=== PATIENT | female | born 1945 | race Hispanic/Latino ===

== ENCOUNTER 2019-10-16 14:15 | Inpatient (IN) | payer MEDICARE ==
[2019-10-16 15:01] LABS: Basophils % 0.8 % (0-1.3); Hematocrit 42.5 % (36.0-45.0); Lymphocytes % 9.3 % (15.3-44.8); MPV 9.9 fL (7.6-11.3); RBC Red Blood Cell Count 4.87 M/uL (3.86-4.86)
[2019-10-16 15:10] LABS: Protime INR 1.22
--- NOTE | 2019-10-16 15:22 | RAD REPORT ---
EXAM DESCRIPTION: RAD - Chest Single View - 10/16/2019 3:08 pm CLINICAL HISTORY: CHEST PAIN COMPARISON: No comparisons TECHNIQUE: AP portable chest image was obtained 10/16/2019 3:08 pm . FINDINGS: Lungs are clear. Heart and vasculature are normal. No measurable pleural effusion and no p neumothorax. No acute bony abnormality seen. No acute aortic findings suspected. IMPRESSION: No acute cardiopulmonary process.
[2019-10-16 15:23] LABS: Albumin 3.3 g/dL (3.4-5.0); Bilirubin Direct 0.2 mg/dL (0-0.2); Bilirubin Total 0.8 mg/dL (0.2-1.0); Potassium 3.2 mmol/L (3.5-5.1); Protein, Total 7.2 g/dL (6.4-8.2); Troponin (Emerg Dept Use Only) 0.02 ng/mL (0.0-0.045)
[2019-10-16] MEDS ORDERED: MORPHINE 2 MG/ML SYR ONE ×2 (15:33→18:52)
[2019-10-16] MEDS ORDERED: ONDANSETRON 4 MG/2 ML VIAL ONE (15:34)
[2019-10-16] MEDS ORDERED: NA CHLORIDE 0.9% 500 ML ONE (15:34)
--- NOTE | 2019-10-16 15:36 | EKG ---
Test Date: 2019-10-16 Test Time: 14:52:30 Field Ironworker: AARON MEASUREMENT RESULTS: Intervals: Rate: 98 RI: 136 QRSD: 68 QT: 378 QTc: 482 [place]: P: 25 RI: 136 QRS: 42 T: 48 INTERPRETIVE STATEMENTS: Normal sinus rhythm Possible Left atrial enlargement Cannot rule out Anterior infarct, age undetermined Abnormal ECG No previous ECG available for comparison Electronically Signed On 10-16-19 15:35:09 SUPERVISOR GENERAL by Senthil Briggs
--- NOTE | 2019-10-16 16:03 | RAD REPORT ---
EXAM DESCRIPTION: CT - Abdomen Pelvis W Contrast - 10/16/2019 3:53 pm CLINICAL HISTORY: ABD PAIN COMPARISON: No comparisons TECHNIQUE: Biphasic, helical CT imaging of the abdomen and pelvis was performed following 100 ml non -ionic IV contrast. No oral contrast administered. All CT scans are performed using dose optimization technique as appropriate and may include automated exposure control or mA/KV adjustment according to patient size. FINDINGS: No acute lung base finding. Patient has a small pericardial effusion. Minimal hiatal herni a is present. Liver and spleen show no suspicious findings. No gallbladder or biliary tree abnormality. No solid or cystic mass within the pancreatic parenchyma. There is minimal amount of stranding along the head an d body of the pancreas with fluid in stranding extending superiorly around the SMA and celiac vascula ture. Pancreatic duct is mildly prominent. No biliary tree abnormality seen. Symmetric renal function is seen with no hydronephrosis or suspicious renal mass. No pyelonephritis o r acute parenchymal process. No bladder abnormalities. No adrenal abnormalities. Uterus is absent. Ov nishi are absent or atrophic. No adnexal mass. No dilated bowel loops or bowel wall thickening. No free air, free fluid or inflammatory stranding. No hernia, mass or bulky lymphadenopathy. No suspicious bony findings. IMPRESSION: Edema and stranding changes are present in the region of the pancreas and extending supe riorly along the celiac and SMA vascular roots. No focal mass or abscess. No lymphadenopathy finding. Correlation is needed with any clinical or labo ratory findings indicating pancreatitis. No gallbladder or biliary tree abnormality.
--- NOTE | 2019-10-16 17:30 | ER ---
Nurse's Notes [facility] Name: Yelena Guzmán Age: 74 yrs Sex: Female : 1945 Arrival Date: 10/16/2019 Time: 14:16 Bed 17 Private MD: Diagnosis: Abdominal and pelvic pain;Acute pancreatitis Presentation: 10/16 14:18 Presenting complaint: Patient states: "I am having chest pain (pt points to diaphragm) aa5 and a headache since Saturday". Pt also c/o vomiting. Transition of care: patient was not received from another setting of care. Onset of symptoms was September 2019. Risk Assessment: Do you want to hurt yourself or someone else? Patient reports no desire to harm self or others. Initial Sepsis Screen: Does the patient meet any 2 criteria? No. Patient's initial sepsis screen is negative. Does the patient have a suspected source of infection? No. Patient's initial sepsis screen is negative. Care prior to arrival: None. 14:18 Acuity: FERCHO 3 aa5 14:18 Method Of Arrival: Wheelchair aa5 Historical: - Allergies: 14:19 No Known Allergies; aa5 - PMHx: 14:19 Arthritis; aa5 - Immunization history:: Flu vaccine is up to date. - Social history:: Smoking status: Patient denies any tobacco usage or history of. - Ebola Screening: : No symptoms or risks identified at this time. Screenin:26 Abuse screen: Denies threats or abuse. Nutritional screening: No deficits noted. tw2 Tuberculosis screening: No symptoms or risk factors identified. Fall Risk None identified. Assessment: 14:25 General: Appears in no apparent distress. slender, well groomed, Behavior is calm, tw2 cooperative, appropriate for age. Pain: Complains of pain in xyphoid area and diaphragm Pain does not radiate. Pain began a few days. Neuro: Level of Consciousness is awake, alert, obeys commands, Oriented to person, place, time, situation. Cardiovascular: Heart tones S1 S2 Patient's skin is warm and dry. Respiratory: Airway is patent Respiratory effort is even, unlabored, Respiratory pattern is regular, symmetrical, Breath sounds are clear bilaterally. GI: Abdomen is flat, Bowel sounds present X 4 quads. Reports upper abdominal pain. : No signs and/or symptoms were reported regarding the genitourinary system. EENT: No signs and/or symptoms were reported regarding the EENT system. Derm: No signs and/or symptoms reported regarding the dermatologic system. Musculoskeletal: Range of motion: intact in all extremities. 15:43 Reassessment: Patient appears in no apparent distress at this time. No changes from tw2 previously documented assessment. Patient and/or family updated on plan of care and expected duration. Pain level reassessed. Patient is alert, oriented x 3, equal unlabored respirations, skin warm/dry/pink. 17:15 Reassessment: Patient appears in no apparent distress at this time. No changes from tw2 previously documented assessment. Patient and/or family updated on plan of care and expected duration. Pain level reassessed. Patient is alert, oriented x 3, equal unlabored respirations, skin warm/dry/pink. 18:25 Reassessment: Patient appears in no apparent distress at this time. No changes from tw2 previously documented assessment. Patient and/or family updated on plan of care and expected duration. Pain level reassessed. Patient is alert, oriented x 3, equal unlabored respirations, skin warm/dry/pink. 19:15 Reassessment: Patient appears in no apparent distress at this time. Patient and/or wh family updated on plan of care and expected duration. Pain level reassessed. Patient is alert, oriented x 3, equal unlabored respirations, skin warm/dry/pink. Vital Signs: 14:17 BP 144 / 82; Pulse 112; Resp 18 S; Temp 98.3(O); Pulse Ox 94% on R/A; Weight 65.77 kg aa5 (R); Height 5 ft. 2 in. (157.48 cm) (R); 15:00 BP 124 / 83; Pulse 107; Resp 17; Pulse Ox 97% on R/A; tw2 15:42 BP 106 / 93; Pulse 101; Resp 17; Pulse Ox 96% on R/A; tw2 17:08 BP 117 / 68; Pulse 101; Resp 17; Pulse Ox 96% on R/A; tw2 18:25 BP 147 / 62; Pulse 90; Resp 17; Pulse Ox 96% on R/A; tw2 19:15 BP 148 / 69; Pulse 92; Resp 18; Pulse Ox 95% on R/A; wh 20:30 BP 155 / 77; Pulse 93; Resp 18; Pulse Ox 96% on R/A; wh 14:17 Body Mass Index 26.52 (65.77 kg, 157.48 cm) aa5 ED Course: 14:16 Patient arrived in ED. as 14:19 Triage completed. aa5 14:20 Arm band placed on. aa5 14:25 Bed in low position. Call light in reach. night monitor on. Pulse ox on. NIBP on. tw2 14:31 Marquise Roman MD is Attending Physician. kdr 14:37 Donna Peres RN is Primary Nurse. tw2 14:45 Inserted saline lock: 20 gauge in left antecubital area, using aseptic technique. Blood tw2 collected. Patient maintains SpO2 saturation greater than 95% on room air. 15:02 EKG done, by heat transfer technician. reviewed by Marquise Roman MD. tc 15:09 XRAY Chest (1 view) In Process Unspecified. EDMS 15:53 CT Abd/Pelvis - IV Contrast Only In Process Unspecified. EDMS 17:29 Gio Topete MD is Hospitalizing Provider. kdr 19:07 Report given to JOVANNI Cristina. tw2 20:30 No provider procedures requiring assistance completed. Patient admitted, IV remains in wh place. Administered Medications: 15:38 Drug: Zofran 4 mg Route: IVP; Site: left antecubital; tw2 16:08 Follow up: Response: No adverse reaction tw2 15:38 Drug: morphine 2 mg Route: IVP; Site: left antecubital; tw2 15:44 Drug: NS 0.9% 500 ml Route: IV; Rate: bolus; Site: left antecubital; tw2 16:50 Follow up: IV Status: Completed infusion; IV Intake: 500ml tw2 19:00 Drug: morphine 2 mg Route: IVP; Site: left antecubital; tw2 19:27 Follow up: Response: No adverse reaction; Pain is decreased; RASS: Alert and Calm (0) Intake: 16:50 IV: 500ml; Total: 500ml. tw2 Outcome: 17:30 Decision to Hospitalize by Provider. kdr 20:31 Admitted to Tele accompanied by tech, via wheelchair, room 408, with chart, Report wh called to Bean Fontenot RN 20:31 Condition: stable 20:31 Instructed on the need for admit. 20:32 Patient left the ED. wh Signatures: Dispatcher [employer] EDMS Marquise Roman MD MD kdr Martinez, Amelia as Calderon, Audri, RN RN aa5 Danyelle Chavarria, sheet metal layout mechanic EKG [facility] Donna Peres RN RN tw2 Jonnie García
--- NOTE | 2019-10-16 17:30 | EDPHYS ---
Physician Documentation [facility] Name: Yelena Guzmán Age: 74 yrs Sex: Female : 1945 Arrival Date: 10/16/2019 Time: 14:16 Bed 17 Private MD: ED Physician Marquise Roman HPI: 10/16 16:07 This 74 yrs old Female presents to ER via Wheelchair with complaints of Chest kdr Pain. 16:07 The patient or guardian reports chest pain that is located primarily in the diaphragm kdr and xyphoid area. Onset: gradually, Since Saturday. The pain does not radiate. Associated signs and symptoms: Pertinent positives: abdominal pain, nausea, vomiting. The chest pain is described as aching, burning, band like. Duration: The patient or guardian reports a single episode, that is still ongoing. Modifying factors: The symptoms are alleviated by nothing. the symptoms are aggravated by eating, movement, palpation of area. Severity of pain: At its worst the pain was mild moderate just prior to arrival, in the emergency department the pain is unchanged. The patient has not experienced similar symptoms in the past. Historical: - Allergies: 14:19 No Known Allergies; aa5 - PMHx: 14:19 Arthritis; aa5 - Immunization history:: Flu vaccine is up to date. - Social history:: Smoking status: Patient denies any tobacco usage or history of. - Ebola Screening: : No symptoms or risks identified at this time. ROS: 16:07 Constitutional: Negative for fever, chills, and weight loss, Eyes: Negative for injury, kdr pain, redness, and discharge, Neck: Negative for injury, pain, and swelling, Cardiovascular: Negative for chest pain, palpitations, and edema, Respiratory: Negative for shortness of breath, cough, wheezing, and pleuritic chest pain, Back: Negative for injury and pain, : Negative for injury, bleeding, discharge, and swelling, MS/Extremity: Negative for injury and deformity, Skin: Negative for injury, rash, and discoloration, Neuro: Negative for headache, weakness, numbness, tingling, and seizure activity. Psych: Negative for depression, anxiety, suicide ideation, homicidal ideation, and hallucinations, Allergy/Immunology: Negative for hives, rash, and allergies, Endocrine: Negative for neck swelling, polydipsia, polyuria, polyphagia, and marked weight changes, Hematologic/Lymphatic: Negative for swollen nodes, abnormal bleeding, and unusual bruising. 16:07 Abdomen/GI: Positive for abdominal pain, nausea and vomiting, Negative for diarrhea, constipation, abdominal cramps, abdominal distension, dysphagia, hematemesis, black/tarry stool, rectal pain, rectal bleeding, bowel incontinence. Exam: 16:07 Constitutional: This is a well developed, well nourished patient who is awake, alert, kdr and in no acute distress. Head/Face: Normocephalic, atraumatic. Eyes: Pupils equal round and reactive to light, extra-ocular motions intact. Lids and lashes normal. Conjunctiva and sclera are non-icteric and not injected. Cornea within normal limits. Periorbital areas with no swelling, redness, or edema. Neck: Trachea midline, no thyromegaly or masses palpated, and no cervical lymphadenopathy. Supple, full range of motion without nuchal rigidity, or vertebral point tenderness. No Meningismus. Chest/axilla: Normal chest wall appearance and motion. Nontender with no deformity. No lesions are appreciated. Cardiovascular: Regular rate and rhythm with a normal S1 and S2. No gallops, murmurs, or rubs. Normal PMI, no JVD. No pulse deficits. Respiratory: Lungs have equal breath sounds bilaterally, clear to auscultation and percussion. No rales, rhonchi or wheezes noted. No increased work of breathing, no retractions or nasal flaring. Back: No spinal tenderness. No costovertebral tenderness. Full range of motion. Skin: Warm, dry with normal turgor. Normal color with no rashes, no lesions, and no evidence of cellulitis. MS/ Extremity: Pulses equal, no cyanosis. Neurovascular intact. Full, normal range of motion. Neuro: Awake and alert, GCS 15, oriented to person, place, time, and situation. Cranial nerves II-XII grossly intact. Motor strength 5/5 in all extremities. Sensory grossly intact. Cerebellar exam normal. Normal gait. Psych: Awake, alert, with orientation to person, place and time. Behavior, mood, and affect are within normal limits. 16:07 Abdomen/GI: Inspection: abdomen appears normal, Bowel sounds: active, diminished, in all quadrants, Palpation: soft, in all quadrants. Vital Signs: 14:17 BP 144 / 82; Pulse 112; Resp 18 S; Temp 98.3(O); Pulse Ox 94% on R/A; Weight 65.77 kg aa5 (R); Height 5 ft. 2 in. (157.48 cm) (R); 15:00 BP 124 / 83; Pulse 107; Resp 17; Pulse Ox 97% on R/A; tw2 15:42 BP 106 / 93; Pulse 101; Resp 17; Pulse Ox 96% on R/A; tw2 17:08 BP 117 / 68; Pulse 101; Resp 17; Pulse Ox 96% on R/A; tw2 18:25 BP 147 / 62; Pulse 90; Resp 17; Pulse Ox 96% on R/A; tw2 19:15 BP 148 / 69; Pulse 92; Resp 18; Pulse Ox 95% on R/A; wh 20:30 BP 155 / 77; Pulse 93; Resp 18; Pulse Ox 96% on R/A; wh 14:17 Body Mass Index 26.52 (65.77 kg, 157.48 cm) aa5 MDM: 16:07 Data reviewed: vital signs, nurses notes, lab test result(s), radiologic studies. kdr 17:30 Patient medically screened. kdr 10/16 14:32 Order name: Basic Metabolic Panel; Complete Time: 15:57 kdr 10/16 14:32 Order name: CBC with Diff; Complete Time: 15:57 kdr 10/16 14:32 Order name: LFT's; Complete Time: 15:57 kdr 10/16 14:32 Order name: Magnesium; Complete Time: 15:57 kdr 10/16 14:32 Order name: NT PRO-BNP; Complete Time: 15:57 kdr 10/16 14:32 Order name: PT-INR; Complete Time: 15:57 kdr 10/16 14:32 Order name: Troponin (emerg Dept Use Only); Complete Time: 15:57 kdr 10/16 14:32 Order name: XRAY Chest (1 view); Complete Time: 15:57 kdr 10/16 15:14 Order name: CT Abd/Pelvis - IV Contrast Only; Complete Time: 16:25 kdr 10/16 16:27 Order name: Lipase; Complete Time: 16:48 kdr 10/16 17:53 Order name: US Abdomen Limited: gallbladder us eb 10/16 19:06 [facility] 14:32 Order name: EKG; Complete Time: 14:33 kdr 10/16 14:32 Order name: Cardiac monitoring; Complete Time: 15:58 [facility] 10/16 14:32 Order name: EKG - Nurse/Tech; Complete Time: 15:58 kdr 10/16 14:32 Order name: IV Saline Lock; Complete Time: 15:58 [facility] 10/16 14:32 Order name: Labs collected and sent; Complete Time: 15:59 kdr 10/16 14:32 Order name: O2 Per Protocol; Complete Time: 15:59 kdr 10/16 14:32 Order name: O2 Sat Monitoring; Complete Time: 15:59 kdr EC:50 Rate is 98 beats/min. Rhythm is regular, Normal Sinus Rhythm with No ectopy. QRS [place] kdr is Normal. Clinical impression: NSR w/ Non-specific ST/T Changes. Administered Medications: 15:38 Drug: Zofran 4 mg Route: IVP; Site: left antecubital; tw2 16:08 Follow up: Response: No adverse reaction tw2 15:38 Drug: morphine 2 mg Route: IVP; Site: left antecubital; tw2 15:44 Drug: NS 0.9% 500 ml Route: IV; Rate: bolus; Site: left antecubital; tw2 16:50 Follow up: IV Status: Completed infusion; IV Intake: 500ml tw2 19:00 Drug: morphine 2 mg Route: IVP; Site: left antecubital; tw2 19:27 Follow up: Response: No adverse reaction; Pain is decreased; RASS: Alert and Calm (0) wh Disposition: 10/16/19 17:30 Hospitalization ordered by Gio Topete for Observation. Preliminary diagnosis are Abdominal and pelvic pain, Acute pancreatitis. - Bed requested for Telemetry/MedSurg (observation). - Status is Observation. wh - Condition is Fair. - Problem is new. - Symptoms have improved. UTI on Admission? No Signatures: Dispatcher [employer] [facility] Marquise Roman MD MD kdr Chanell Lui, RN RN aa5 Donna Peres RN RN tw2 Jonnie García Maikol Garibay RN RN [email or web address] Amber Tijerina Corrections: (The following items were deleted from the chart) 17:33 17:30 Hospitalization Ordered by Gio Topete MD for Observation. Preliminary eb diagnosis is Abdominal and pelvic pain; Acute pancreatitis. Bed requested for Telemetry/MedSurg (observation). Status is Observation. Condition is Fair. Problem is new. Symptoms have improved. UTI on Admission? No. kdr 18:06 17:33 10/16/2019 17:30 Hospitalization Ordered by Gio Topete MD for Observation. ja1 Preliminary diagnosis is Abdominal and pelvic pain; Acute pancreatitis. Bed requested for Telemetry/MedSurg (observation). Status is Observation. Condition is Fair. Problem is new. Symptoms have improved. UTI on Admission? No. eb 20:32 18:06 10/16/2019 17:30 Hospitalization Ordered by Gio Topete MD for Observation. wh Preliminary diagnosis is Abdominal and pelvic pain; Acute pancreatitis. Bed requested for Telemetry/MedSurg (observation). Status is Observation. Condition is Fair. Problem is new. Symptoms have improved. UTI on Admission? No. ja1
--- NOTE | 2019-10-16 19:04 | RAD REPORT ---
EXAM DESCRIPTION: US - Abdomen Exam Limited - 10/16/2019 6:25 pm CLINICAL HISTORY: ABD PAIN COMPARISON: Abdomen Pelvis W Contrast dated 10/16/2019 FINDINGS: Gallbladder is normal in size. Multiple small sub centimeter mobile gallstones are present . There is no wall thickening or pericholecystic fluid. No common duct stone or biliary tree dilatation identified. IMPRESSION: Multi stone cholelithiasis without additional findings for acute cholecystitis. No duct stone or biliary tree abnormality.
[2019-10-16] MEDS ORDERED: ACETAMINOPHEN 500 MG TAB PO PRN (20:50)
[2019-10-16 21:26] VITALS: BMI 27.6
[2019-10-16] MEDS: MORPHINE 4 MG/ML SYR IV PRN (22:30)
[2019-10-16] MEDS: ONDANSETRON 4 MG/2 ML VIAL IV PRN (22:30)
[2019-10-16] MEDS: D5 0.45 NS 1,000 ML IV SCH (22:30)
[2019-10-17] MEDS: ONDANSETRON 4 MG/2 ML VIAL IV PRN ×5 (02:45→20:20)
[2019-10-17] MEDS: MORPHINE 4 MG/ML SYR IV PRN ×3 (02:45→10:43)
[2019-10-17 03:27] LABS: Urine Appearance CLEAR; Urine Bilirubin NEGATIVE (NEG); Urine Blood NEGATIVE (NEG); Urine Color YELLOW; Urine Glucose NEGATIVE (NEG); Urine Protein NEGATIVE (NEG); Urine pH 6.5 (5.0-7.0)
[2019-10-17 03:32] LABS: Urine Microscopic Reflex ORDER UMIC
[2019-10-17 04:14] LABS: Urine Bacteria 20-50 /HPF (<20); Urine Culture Reflex Order REFLEXED; Urine Mucus 1+ /HPF (NONE SEEN); Urine RBC <5 /HPF (NONE SEEN)
[2019-10-17 05:01] LABS: Basophils % 0.5 % (0-1.3); Hematocrit 38.5 % (36.0-45.0); Lymphocytes % 9.1 % (15.3-44.8); MPV 9.7 fL (7.6-11.3)
[2019-10-17 05:24] LABS: ALT/SGPT 68 U/L (12-78); AST/SGOT 19 U/L (15-37); Albumin 2.9 g/dL (3.4-5.0); Alkaline Phosphatase 83 U/L (45-117); BUN Blood Urea Nitrogen 7 mg/dL (7-18); Bicarbonate 29 mmol/L (21-32); Bilirubin Direct 0.2 mg/dL (0-0.2); Bilirubin Total 0.6 mg/dL (0.2-1.0); Glucose Level 130 mg/dL (74-106); Lipase 73 U/L (73-393); Protein, Total 6.5 g/dL (6.4-8.2); Sodium Level 136 mmol/L (136-145)
[2019-10-17] MEDS: D5 0.45 NS 1,000 ML IV SCH ×3 (10:10→20:32)
[2019-10-17] MEDS ORDERED: PNEUMOCOCCAL VACCINE 0.5 ML IMVAC ONE (13:00)
[2019-10-17] MEDS: MORPHINE 2 MG/ML SYR IV PRN ×3 (13:08→20:20)
--- NOTE | 2019-10-17 16:01 | PN ---
Date of Progress Note: 10/17/2019 Patient states she feels somewhat uncomfortable for the most part with relief with morphine and utili zing the Zofran, still anorectic, with tenderness in mid epigastric area. The combination of CT ultr asound and lab work strongly suggestive of pancreatitis secondary to gallbladder disease. The case w as discussed with Dr. Mendiola who will see the patient and in the meantime, an MRCP has been ordered. Depending on the results, the utilization of ERCP prior or post surgery will be discussed. In the wi antime, antibiotics were added to the regimen and the morphine was changed from q.4 to q.2 and she wa s made n.p.o. HR/MODL Voice ID: [id number] Report ID: [id number]
--- NOTE | 2019-10-17 16:16 | HP ---
Date of Admission: 10/16/2019 Chief Complaint: Abdominal pain, nausea, vomiting. History Of Present Illness: Patient states her symptoms began 3 days prior to presenting to the [facility] room with some discomfort in the mid epigastric area. She has not had any GI problems in the p ast and became progressive. She had some vomiting, which would be episodic in nature associated with the pain. The latter became more severe and therefore she presented to the emergency room. She has not had the EGD, had a colonoscopy many years ago. She has not been aware of any gallbladder diseas e. Social History: Nonsmoker, nondrinker. Family History: Noncontributory. 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 She has been on an ti-inflammatories, increased lately with meloxicam on almost daily basis. In the past has been on a p.r.n. basis. Physical Examination: General: Patient is obviously uncomfortable female. Vital Signs: Stable. Head and Neck: Normocephalic. Pupils equal and reactive to light and accommodation. Fundi negative . Trachea midline. Thyroid not palpable. ENT: Negative. Chest: Clear to P and A. Cardiovascular: PMI in midclavicular line. Heart sounds are normal. Peripheral pulses are present and equal bilaterally. Abdomen: Minimal tenderness to midepigastric area extending slightly off the midline, both left and right. No rebound tenderness. No guarding or rigidity. Bowel sounds hypoactive. Extremities: Moderately dehydrated. Good tone and movement bilaterally. Reflexes physiologic. Rectal/Pelvic: Deferred. Impression: Pancreatitis, probable secondary to cholelithiasis, dehydration. Plan: Patient will be admitted, placed on IV fluids. Decrease her dietary intake of fluids and repe at the blood work in the morning. Depending on the results of that, we will determine plan from that point on. HR/MODL Voice ID: [id number]
[2019-10-17] MEDS: KCL 20 MEQ/100 mL IVPB 20 MEQ/100 ML BAG IV SCH ×2 (16:57→20:19)
[2019-10-17] MEDS: CEFTRIAXONE/SWI 1gm 1 GM/10 ML SYR IVP SCH (20:19)
[2019-10-18] MEDS: ONDANSETRON 4 MG/2 ML VIAL IV PRN ×3 (00:08→20:43)
[2019-10-18] MEDS: MORPHINE 2 MG/ML SYR IV PRN ×4 (01:53→20:42)
[2019-10-18] MEDS: D5 0.45 NS 1,000 ML IV SCH ×3 (05:40→22:48)
[2019-10-18 06:12] LABS: Absolute Lymphocytes (CBC) 1.2 K/uL (0.7-4.9); Basophils % 0.4 % (0-1.3); Hematocrit 37.5 % (36.0-45.0); Lymphocytes % 17.6 % (15.3-44.8); MPV 9.6 fL (7.6-11.3); RBC Red Blood Cell Count 4.24 M/uL (3.86-4.86)
[2019-10-18 06:32] LABS: Albumin 2.8 g/dL (3.4-5.0); Bilirubin Direct 0.2 mg/dL (0-0.2); Bilirubin Total 0.5 mg/dL (0.2-1.0); Potassium 3.3 mmol/L (3.5-5.1); Protein, Total 6.6 g/dL (6.4-8.2)
[2019-10-18] MEDS: KCL 20 MEQ/100 mL IVPB 20 MEQ/100 ML BAG IV SCH ×2 (07:26→09:02)
[2019-10-18] MEDS: CEFTRIAXONE/SWI 1gm 1 GM/10 ML SYR IVP SCH ×2 (08:12→20:42)
--- NOTE | 2019-10-18 11:29 | CON ---
Date of Consultation: 10/17/2019 Chief Complaint: Abdominal pain. History Of Present Illness: Patient is a 74-year-old female, who was admitted 2 days ago with abdomi nal pain, nausea, and vomiting. Her pain started last Saturday in the epigastric region. She continu ed to have progressive pain, would not get better. She came to the emergency room. She has been walter gnosed with pancreatitis radiographically, was admitted; however she also has gallstones and I was co nsulted. She is awake, alert, still complaining of some pain in the epigastrium and occasional nause a and vomiting which is better with Zofran. No sore throat, runny nose, cough, headaches, or dizzine ss. No chest pain. No fever or chills. Review of Systems: Otherwise unremarkable. Past Medical History: Significant for arthritis. Non-Hodgkin's lymphoma back in 82. Past Surgical History: Significant for vaginocele, rectocele and prolapsed bladder surgery. Allergies: NO ALLERGIES. Social History: She does not smoke and does not drink. Family History: Noncontributory. Physical Examination: Vital Signs: Stable. She is afebrile. She is awake, alert, and oriented x3. Head and Neck: No evidence of icterus. Cranial nerves 2 through 12 are grossly within normal limits . No neck masses. No JVD. Throat clear. Neck is supple. Chest: Clear. Heart: S1, S2. Abdomen: Soft, nondistended. Positive bowel sounds. Minimal right upper quadrant epigastric tender ness. No rebound, rigidity or guarding. Extremity: Adequately perfused. Nontender. Neuro: Nonfocal. Laboratory Data: White count is normal. There is no left shift. INR is 1.22. Chemistry reviewed. LFTs are normal. Lipase is normal. She had slight hypokalemia. Ultrasound and CT reviewed, patien t had mild evidence of pancreatitis on the CAT scan and multi-stone cholelithiasis on the ultrasound. Assessment: Gallstone pancreatitis. Recommendations: I do not think the patient needed an ERCP but I do think the patient would benefit from an MRCP prior to surgical intervention. The plan of care including the MRCP as well as lap marcio, possible open and antibiotics was planned. Patient and family understand the risks, benefits, and alternatives and agrees to procedure. Plan o f care was also discussed with Dr. Topete. /MODL Voice ID: [id number] Report ID: [id number]
--- NOTE | 2019-10-18 17:14 | PN ---
Date of Progress Note: 10/18/2019 Patient feels somewhat better today. She is tolerating her diet. Has had episodes of mid epigastric discomfort; however, she is not quite as tender today. Surgery has been consulted and plan will be unless there is something negative on the MRCP to progress with a lap marcio. Her blood counts as far as the pancreas and liver and white count have improved. HR/MODL Voice ID: [id number] Report ID: [id number]
[2019-10-18] MEDS ORDERED: POTASSIUM CL SA 10 MEQ TAB PO ONE (18:43)
[2019-10-19 04:49] LABS: BUN Blood Urea Nitrogen 3 mg/dL (7-18); Bicarbonate 29 mmol/L (21-32); Glucose Level 114 mg/dL (74-106); Potassium 3.6 mmol/L (3.5-5.1); Sodium Level 140 mmol/L (136-145)
--- NOTE | 2019-10-19 08:25 | RAD REPORT ---
EXAM DESCRIPTION: MRICholangiogram10/19/2019 7:49 am CLINICAL HISTORY: Abdominal pain COMPARISON: September cat scan and ultrasound TECHNIQUE: Magnetic resonance cholangiogram was performed.3D MIP reconstruction performed FINDINGS: Multiple gallstones. The gallbladder wall is not thickened. The biliary tree is normal caliber without a filling defect. Pancreatic duct is normal caliber The inflammatory changes surrounding the pancreas have improved IMPRESSION: Cholelithiasis
[2019-10-19] MEDS: CEFTRIAXONE/SWI 1gm 1 GM/10 ML SYR IVP SCH ×2 (08:54→21:02)
[2019-10-19] MEDS: D5 0.45 NS 1,000 ML IV SCH ×3 (08:54→21:01)
[2019-10-19] MEDS ORDERED: Ringers Lactate 1,000 ML IV ONE (09:15)
[2019-10-19] MEDS ORDERED: propofoL 200 MG/20 ML VIAL IV ONE (09:34)
[2019-10-19] MEDS ORDERED: FENTANYL CITR 100 MCG/2 ML ONE ×2 (09:34→11:04)
[2019-10-19] MEDS ORDERED: ROCURONIUM 50 MG/5 ML VIAL IV ONE (09:35)
[2019-10-19] MEDS ORDERED: dexAMETHasone 10 MG/ML VIAL ONE (09:35)
[2019-10-19] MEDS ORDERED: GLYCOPYRROLATE 0.2 MG/ML SYR ONE ×2 (09:35→11:16)
[2019-10-19] MEDS ORDERED: MIDAZOLAM HCL 2 MG/2 ML INJ ONE (09:35)
[2019-10-19] MEDS ORDERED: LIDOCAINE 2% MPF 5 ML VIAL ONE (09:35)
[2019-10-19] MEDS ORDERED: KETOROLAC 30 MG/ML INJ ONE (11:08)
[2019-10-19] MEDS ORDERED: NEOSTIGMINE 1 MG/ML -5 ML ONE (11:17)
--- NOTE | 2019-10-19 11:22 | P.OP ---
Die Fitter: Carmelo BACK Preoperative diagnosis: Gallstone Pancreatitis Postoperative diagnosis: same Primary procedure: Lap Giselle Anesthesia: General Estimated blood loss: min Specimen: gb Findings: as above Complications: None Transferred to: Recovery Room Condition: Good
[2019-10-19] MEDS ORDERED: HYDROMORPHONE HCL 1 MG/ML INJ IV PRN (11:33)
[2019-10-19] MEDS: HYDROCODONE/APAP 7.5/325 MG TAB PO PRN ×2 (16:22→21:02)
[2019-10-19] MEDS ORDERED: POTASSIUM 25 MEQ EFFERV TAB PO ONE (17:46)
--- NOTE | 2019-10-19 21:20 | OP ---
Date of Procedure: 10/19/2019 Surgeon: Delon Mendiola MD Stock Letterer: NAZANIN Bailey. Preoperative Diagnosis: Gallstone pancreatitis. Postoperative Diagnosis: Gallstone pancreatitis. Procedure: Laparoscopic cholecystectomy. Estimated Blood Loss: Minimal. Findings: As above. Anesthesia: General. Complications: None. Patient tolerated the procedure in stable condition, taken to Recovery in good general condition. Procedure In Detail: Patient was brought to the OR and placed in supine position. General anesthesi a was begun. Patient was prepped and draped in usual sterile fashion. Marcaine 0.5% was infiltrated locally. A 15-blade was used to make a 1 cm infraumbilical midline incision. Subcutaneous tissue d ivided. Fascia was identified and divided. A #1 Vicryl stay suture was placed. Peritoneal cavity w as entered with blunt dissection. A 12 mm trocar was placed into the peritoneal cavity under direct vision. Pneumoperitoneum was established. Then, three 5 mm trocars were placed, 1 in the epigastriu m just to the right of midline and 2 in the right subcostal region. Laparoscopy revealed chronic inf lammation of the gallbladder. Fundus retracted superiorly. Infundibulum was identified and retracte d inferolaterally. Cystic duct and cystic artery were clearly identified with blunt dissection. Cli ps were placed. Both structures were divided. Cautery was used to remove the gallbladder from the l iver bed. Bleeding on the liver bed controlled with cautery. The gallbladder was retrieved through the umbilicus via an EndoCatch bag. Right upper quadrant was irrigated. Effluent was clear. No lenora dence of bleeding or bile leakage appreciated. Subsequently, all trocars were removed under direct v ision. Stay sutures were tied to each other across the fascial defect. Subcutaneous wounds were irr igated, bleeding controlled with cautery. 3-0 chromic was used to reapproximate the subcutaneous tis elsy and closed the skin. Sterile dressing was applied. Patient was awakened and taken to Recovery i n good general condition. /MODL Voice ID: [id number] Report ID: [id number]
[2019-10-20 01:36] VITALS: O2SAT 96
[2019-10-20] MEDS: HYDROCODONE/APAP 7.5/325 MG TAB PO PRN (02:46)
[2019-10-20] MEDS: D5 0.45 NS 1,000 ML IV SCH (04:27)
[2019-10-20 04:33] LABS: Potassium 4.8 mmol/L (3.5-5.1)
[2019-10-20] MEDS: CEFTRIAXONE/SWI 1gm 1 GM/10 ML SYR IVP SCH (07:43)
[2019-10-20 08:30] VITALS: BP 128/72; TEMP 97.3
== END 2019-10-20 09:58 | disposition home or self-care (01) | DRG 419 ==
LOC: ER 14:15 → ERHOLD 17:31 → 4TH 20:20 → OBSVTOIN 10-17 17:27
PROVIDERS: ADMIT Family Medicine; ATTEND Family Medicine
PROC: 0FT44ZZ Resection of Gallbladder, Percutaneous Endoscopic Approach (ICD-10-PCS; principal; 2019-10-19 10:00)
DX: K85.10 Biliary acute pancreatitis without necrosis or infection (principal); Z85.72 Personal history of non-Hodgkin lymphomas
CPT/HCPCS: 36415; 71045; 74177; 74181; 76705; 80048; 80076; 81003; 81015; 82150; 83690; 83735; 83880; 84132; 84484; 85025; 85610; 87086; 87088; 88304; 93005; 96361; 96374; 96375; 99285; G0378; J0696; J1100; J2250; J2270; J2405; J2704; J2710; J3010; J7040; J7120; J7799; Q9967

== ENCOUNTER 2023-08-02 11:52 | Emergency (ER) | payer OTHER ==
--- OUTSIDE RECORDS SUMMARY | 2023-08-02 11:56 | XMS REPORT | Continuity of Care Document ---
:1945 Author Organization [facility] t Address [address] [facility] [address] [place] [address] Care Team Providers Name Role Phone Unavailable Unavailable Unavailable Problems Condition Condition Condition Status Onset Resolution Last Treating Co mments Source Name Details Category Date Date Treatment Clinician Date Xerostomia Xerostomi Problem Active 2019-07-23 Memoria a Active 02:50:05 l Problem Paul 07/23/2019 [facility] Blurry Blurry Problem Active 2019-07-23 [place] [facility] vision, vision, 02:50:05 l bilateral bilateral Herm steffany Active Problem 07/23/2019 [facility] Pain in Pain in Problem Active 2019-07-23 Me moria joint joint 02:50:05 l involving involving Herm steffany multiple multiple sites sites Active Problem 07/23/2019 [facility] Generalize Generaliz Problem Active 2019-07-23 Memoria d ed 02:50:05 l osteoarthr osteoarthr He rmann itis of itis of hand hand Active Problem 07/23/2019 [facility] Screening Screening Problem Active 2019-07-23 Memoria for for 02:50:05 l osteoporos osteoporos He rmann is is Active Problem 07/23/2019 [facility] Elevated Elevated Problem Active 2019-07-23 Memoria blood blood 02:50:05 l pressure pressure Enrrique n reading reading without without diagnosis diagnosis of of hypertensi hypertensi on on Active Problem 07/23/2019 [facility] Abnormal Abnormal Problem Active 2019-07-23 Memoria immunologi immunologi 02:50:05 l johnny johnny Paul finding in finding in serum, serum, unspecifie unspecifie d d Active Problem 07/23/2019 [facility] Posterior Posterior Problem Active 2019-07-23 Memoria tibial tibial 02:50:05 l tendinitis tendinitis He rmann of right of right lower lower extremity extremity Active Problem 07/23/2019 [facility] Allergies, Adverse Reactions, Alerts Allergy Allergy Status Severity Reaction(s) Onset Inactive Treating Comm ents Source Name Type Date Date Clinician N.SarthakA. NBarby Active Info Not 2018-09 [place] [facility] Available 0-22 l 00:00: Medications Ordered Filled Start Stop Current Ordering Indication Dosage Frequency Signature Comments Components Source Medication Medication Date Date Medication? Clinician (SIG) Name Name Meloxicam 2018-09 Yes Lashawn 1 tablet Memoria 1-24 Vo l 00:00: Paul 00 Biofreeze 2018-09 Yes Lashawn 1 Me moria Roll-On 0-31 Vo applicatio l 02:47: n to affected area as needed Aspercreme 2018-09 Yes Lashawn as M emoria w/Lidocaine 0-31 Vo directed l 02:47: Temazepam 2018-09 Yes Lashawn 1 capsule Memoria 0-31 Vo at bedtime l 02:47: as needed Claritin 2018-09 Yes Lashawn 1 tablet Memoria 0-31 Vo l 02:47: Alprazolam 2018-09 Yes Lashawn 1 tablet Memoria 0-31 Vo l 02:47: Diclofenac 2018- Yes Lashawn 1 M emoria Sodium 7-15 Vo applicatio l 00:00: n to affected area Vital Signs Vital Name Observation Time Observation Value Comments Source Weight 2019-07-14 14:30:00 [facility] Height 2019-07-14 14:30:00 [facility] Heart Rate 2019-07-14 14:30:00 [facility] Diastolic (mm Hg) 2019-07-14 14:30:00 [facility] [place] Systolic (mm Hg) 2019-07-14 14:30:00 [place] [facility] Weight 2019-05-18 14:45:00 [facility] Height 2019-05-18 14:45:00 [facility] Paul Heart Rate 2019-05-18 14:45:00 [facility] Paul Diastolic (mm Hg) 2019-05-18 14:45:00 [facility] [place] Systolic (mm Hg) 2019-05-18 14:45:00 [place] [facility] [place] Procedures This patient has no known procedures. Encounters Start End Encounter Admission Attending Care Care Encounter Source Date/Time Date/Time Type Type Clinicians Facility Department ID 2023-08-02 Outpatient [id number] Memoria 11:56:16 [id number] 2021-10-18 [facility] [id number] Common 14:33:52 [facility] 2019-07-20 2019-07-20 Outpatient [id number] eClinic 15:32:00 15:32:00 [id number] [facility]Works [id number] 2019-07-14 2019-07-14 Outpatient PRL - PRL - [id number] eClinic 09:30:00 09:30:00 [facility] 2019-05-18 2019-05-18 Outpatient PRL - PRL - [id number] eClinic 09:45:00 09:45:00 [facility] 2019-04-08 2019-04-08 Outpatient ZEE - ZEE - [id number] eClinic 08:50:00 08:50:00 [facility] Results This patient has no known results.
[2023-08-02 13:34] LABS: Absolute Lymphocytes (CBC) 1.4 K/uL (0.7-4.9); Hematocrit 44.3 % (36.0-45.0); Lymphocytes % 19.2 % (15.3-44.8); MCV 85.2 fL (80-100); MPV 8.9 fL (7.6-11.3); Platelets 363 thou/uL (152-406)
[2023-08-02 13:48] LABS: Potassium 3.6 mEq/L (3.5-5.1)
--- NOTE | 2023-08-02 15:01 | RAD REPORT ---
EXAM DESCRIPTION: CT - Chest Abdomen Pelvis W Cont - 08/02/2023 2:08 pm CLINICAL HISTORY: TRAUMA COMPARISON: Abdomen Pelvis W Contrast dated 10/16/2019 TECHNIQUE: Thin axial CT images of the chest, abdomen, and pelvis, performed following intravenous a dministration of 100 mL Isovue-300. Multiplanar reformats were generated and reviewed. All CT scans are performed using dose optimization technique as appropriate and may include automated exposure control or mA/KV adjustment according to patient size. FINDINGS: The lungs show no focal consolidation. Right middle lobe peribronchovascular solid ovoid 7 millimeter nodule.No pleural or pericardial effusion.No intrathoracic adenopathy. The liver, spleen, pancreas, adrenal glands and kidneys are within normal limits. Status post cholecy stectomy. Large lobulated mass centered on the left aspect of the pelvis extending into the lower abdomen, chad uring 11.8 x 11.6 x 13.2 cm in greatest transverse, cc, and AP dimensions. Mass demonstrates areas of central necrosis or cystic change. No bowel obstruction, free air, free fluid or abscess. Status pos t hysterectomy. No suspicious adenopathy. Small inguinal hernias containing fat. No worrisome osseous finding. IMPRESSION: Large lobulated pelvic/lower abdominal heterogeneous mass with central cystic or necroti c change, up to 13.2 cm in greatest dimension. Left adnexal origin is favored, with ovarian mucinous and solid tumors being the primary considerations. Please correlate with prior surgical history. Gyne cologic/oncologic referral is recommended. 7 millimeter right middle lobe peribronchovascular nodule is nonspecific. This would benefit from [facility] CT follow-up in 6-12 months.
--- NOTE | 2023-08-02 15:24 | ER ---
Nurse's Notes [facility] Name: Yelena Guzmán Age: 78 yrs Sex: Female : 1945 Arrival Date: 08/02/2023 Time: 11:52 Bed 12 Private MD: Diagnosis: Pelvic mass, abdominal pain Presentation: 08/02 12:16 Chief complaint: Patient states: fall on last Saturday , was picking pecans , tripped iw over dog, has been having pain on left abd/flank area. Coronavirus screen: At this time, the client does not indicate any symptoms associated with coronavirus-19. Ebola Screen: Patient negative for fever greater than or equal to 101.5 degrees Fahrenheit, and additional compatible Ebola Virus Disease symptoms Patient denies exposure to infectious person. Patient denies travel to an Ebola-affected area in the 21 days before illness onset. Initial Sepsis Screen: Does the patient meet any 2 criteria? No. Patient's initial sepsis screen is negative. Does the patient have a suspected source of infection? No. Patient's initial sepsis screen is negative. Risk Assessment: Do you want to hurt yourself or someone else? Patient reports no desire to harm self or others. Onset of symptoms was July 26, 2023. 12:16 Method Of Arrival: Ambulatory iw 12:16 Acuity: FERCHO 3 Triage Assessment: 13:28 General: Appears in no apparent distress. uncomfortable, Behavior is calm, cooperative, jl7 appropriate for age. Pain: Complains of pain in left flank. Historical: - Allergies: 12:21 Sulfa (Sulfonamide Antibiotics); iw - Home Meds: 12:19 None [Active]; iw - PMHx: 13:28 Arthritis; jl7 15:19 non-Hodgkins Lymphoma; jl7 - PSHx: 15:19 partial hysterectomy; jl7 - Immunization history:: Adult Immunizations unknown. - Social history:: Smoking status: unknown. Screenin:30 [facility] ED Fall Risk Assessment (Adult) Score/Fall Risk Level 3 or more points = High jl7 Risk Oriented to surroundings, Maintained a safe environment. Abuse screen: Denies threats or abuse. Denies injuries from another. Nutritional screening: No deficits noted. Tuberculosis screening: No symptoms or risk factors identified. Assessment: 15:18 Reassessment: Dr. Nair at bedside discussing results and POC. jl7 Vital Signs: 12:16 Pulse 97; Resp 16; Temp 98.6; Pulse Ox 99% on R/A; iw ED Course: 11:56 Patient arrived in ED. im 11:57 Nikolay Nair MD is Attending Physician. sp3 12:18 Triage completed. iw 12:18 Arm band placed on. iw 13:15 Grace Guy, RN is Primary Nurse. jl7 13:29 No provider procedures requiring assistance completed. Initial lab(s) drawn, by me, tano7 sent to lab. Inserted saline lock: 22 gauge in left antecubital area, using aseptic technique. Blood collected. 13:30 Patient has correct armband on for positive identification. Provided Education on: jl7 tests. 14:10 CT Chest, Abdomen, Pelvis - W/Contrast: TRAUMA In Process Unspecified. EDMS 15:58 IV discontinued, intact, bleeding controlled, No redness/swelling at site. Pressure jl7 dressing applied. Administered Medications: No medications were administered Medication: 15:58 VIS not applicable for this client. jl7 Outcome: 15:23 Discharge ordered by . sp3 17:01 Discharged to home ambulatory, with daughter jl7 17:01 Condition: stable 17:01 Discharge instructions given to patient, family, Instructed on discharge instructions, follow up and referral plans. Demonstrated understanding of instructions, follow-up care, 17:02 Patient left the ED. jl7 Signatures: Dispatcher [employer] EDMS Columba Palafox RN RN iw Grace Guy, JOVANNI BAIG jl7 Nikolay Nair MD MD sp3 Tatiana Gutierrez Corrections: (The following items were deleted from the chart) 12:21 12:19 Allergies: No Known Allergies; iw
--- NOTE | 2023-08-02 15:24 | EDPHYS ---
Physician Documentation [facility] Name: Yelena Guzmán Age: 78 yrs Sex: Female : 1945 Arrival Date: 08/02/2023 Time: 11:52 Bed 12 Private MD: ED Physician Nikolay Nair HPI: 08/02 12:58 This 78 yrs old Female presents to ER via Ambulatory with complaints of Sent sp3 by for fall injury. 12:58 78-year-old female with no past medical history presents for left flank pain status sp3 post mechanical ground-level fall 7 days ago while working in the garden. Patient initially fell and had pain on the left left knee and left shoulder region. That is mainly subsided however she now has a pain in her left flank that is new and she feels is not going away. She denies any head injury, neck pain, headache, chest pain, upper back pain, syncope, near syncope, gross hematuria, blood in stools, or any other signs or symptoms on ROS at this time.. Historical: - Allergies: 12:21 Sulfa (Sulfonamide Antibiotics); iw - Home Meds: 12:19 None [Active]; iw - PMHx: 13:28 Arthritis; jl7 15:19 non-Hodgkins Lymphoma; jl7 - PSHx: 15:19 partial hysterectomy; jl7 - Immunization history:: Adult Immunizations unknown. - Social history:: Smoking status: unknown. ROS: 12:59 Constitutional: Negative for fever, chills, and weight loss, Eyes: Negative for injury, sp3 pain, redness, and discharge, ENT: Negative for injury, pain, and discharge, Neck: Negative for injury, pain, and swelling, Cardiovascular: Negative for chest pain, palpitations, and edema, Respiratory: Negative for shortness of breath, cough, wheezing, and pleuritic chest pain, : Negative for injury, bleeding, discharge, and swelling, MS/Extremity: Negative for injury and deformity, Skin: Negative for injury, rash, and discoloration, Neuro: Negative for headache, weakness, numbness, tingling, and seizure, Psych: Negative for depression, anxiety, suicide ideation, homicidal ideation, and hallucinations, Allergy/Immunology: Negative for hives, rash, and allergies, Endocrine: Negative for neck swelling, polydipsia, polyuria, polyphagia, and marked weight changes, 12:59 All other systems are negative, Exam: 13:00 Constitutional: This is a well developed, well nourished patient who is awake, alert, sp3 and in no acute distress. Head/Face: Normocephalic, atraumatic. Eyes: Pupils equal round and reactive to light, extra-ocular motions intact. Lids and lashes normal. Conjunctiva and sclera are non-icteric and not injected. Cornea within normal limits. Periorbital areas with no swelling, redness, or edema. Neck: Trachea midline, no thyromegaly or masses palpated, and no cervical lymphadenopathy. Supple, full range of motion without nuchal rigidity, or vertebral point tenderness. No Meningismus. Chest/axilla: Normal chest wall appearance and motion. Nontender with no deformity. No lesions are appreciated. Cardiovascular: Regular rate and rhythm with a normal S1 and S2. No gallops, murmurs, or rubs. Normal PMI, no JVD. No pulse deficits. Respiratory: Lungs have equal breath sounds bilaterally, clear to auscultation and percussion. No rales, rhonchi or wheezes noted. No increased work of breathing, no retractions or nasal flaring. Abdomen/GI: Soft, non-tender, with normal bowel sounds. No distension or tympany. No guarding or rebound. No evidence of tenderness throughout. Skin: Warm, dry with normal turgor. Normal color with no rashes, no lesions, and no evidence of cellulitis. MS/ Extremity: Pulses equal, no cyanosis. Neurovascular intact. Full, normal range of motion. Neuro: Awake and alert, GCS 15, oriented to person, place, time, and situation. Cranial nerves II-XII grossly intact. Motor strength 5/5 in all extremities. Sensory grossly intact. Cerebellar exam normal. Normal gait. Psych: Awake, alert, with orientation to person, place and time. Behavior, mood, and affect are within normal limits. 13:00 Back: No signs of trauma noted. Very mild pain to palpation on the left flank., Vital Signs: 12:16 Pulse 97; Resp 16; Temp 98.6; Pulse Ox 99% on R/A; iw MDM: 12:42 Patient medically screened. sp3 13:00 Data reviewed: vital signs, nurses notes. ED course: 78-year-old female with left flank sp3 pain likely soft tissue traumatic in nature. Given the fact that is 7 days old, I do not believe patient has life-threatening injury however CT scan of the abdomen and pelvis from a trauma standpoint is indicated given her symptoms. If scan is negative, we will safely discharge patient home with diagnosis soft tissue injuries and follow-up back up with Dr. Topete. I am not highly suspicious for significant bleeding or solid organ injury.. 15:21 ED course: Patient CT scan is negative from a trauma standpoint but there is a 13 cm at sp3 its widest diameter pelvic mass likely from ovarian origin that was found. Have communicated this with patient as well as her primary care physician Dr. Topete. He will be coordinating her care and I have also given her instructions on MD Alcaraz. We will discharge her home at this time.. 08/02 12:21 Order name: Basic Metabolic Panel; Complete Time: 15:03 sp3 08/02 12:21 Order name: CBC with Diff; Complete Time: 15:03 sp3 08/02 12:21 Order name: CT Chest, Abdomen, Pelvis - W/Contrast: TRAUMA; Complete Time: 15:03 sp3 08/02 12:21 Order name: Labs collected and sent; Complete Time: 13:28 sp3 Administered Medications: No medications were administered Disposition Summary: 08/02/23 15:23 Discharge Ordered Notes: Location: Home sp3 Condition: Stable sp3 Diagnosis - Pelvic mass, abdominal pain sp3 Followup: sp3 - With: Private Physician - When: Upon discharge from the Emergency Department - Reason: Continuance of care Discharge Instructions: - Discharge Summary Sheet sp3 - Pelvic Mass, Female sp3 Forms: - Medication Reconciliation Form sp3 - Thank You Letter sp3 - Antibiotic Education sp3 - Prescription Opioid Use sp3 - Patient Portal Instructions sp3 - Leadership Thank You Letter sp3 Signatures: Dispatcher [employer] Columba Hayes RN RN iw Leal, Jahala, RN RN jlNikolay Hogue MD MD sp3 Corrections: (The following items were deleted from the chart) 12:21 12:19 Allergies: No Known Allergies; [facility] 15:22 12:22 TYPE AND SCREEN+[id number].BRZ ordered. EDMS EDMS
[2023-08-02 17:10] VITALS: TEMP 98.6; O2SAT 99
== END 2023-08-02 17:02 | disposition home or self-care (01) ==
LOC: ER 11:52
DX: R19.00 Intra-abdominal and pelvic swelling, mass and lump, unspecified site (principal); Z88.2 Allergy status to sulfonamides; Z85.72 Personal history of non-Hodgkin lymphomas
CPT/HCPCS: 85025; 80048; 36415; 71260; 74177; 99283; Q9967